=== PATIENT | male | born 1960 | race Caucasian/White ===

== ENCOUNTER → 2016-04-14 | Outpatient (CLI) | payer OTHER | END | disposition home or self-care (01) | LOC: RADMRIMAIN 14:48 | PROVIDERS: ATTEND Physical Medicine & Rehabilitation | DX: Z53.9 Procedure and treatment not carried out, unspecified reason (principal) ==

== ENCOUNTER 2016-05-12 09:03 | Emergency (ER) | payer OTHER ==
[2016-05-12 09:06] VITALS: RESP 20
--- NOTE | 2016-05-12 09:32 | XR ---
EXAMINATION TYPE: XR chest 2V DATE OF EXAM: 05/12/2016 9:26 AM COMPARISON: NONE TECHNIQUE: PA and lateral views submitted. HISTORY: cough FINDINGS: The lungs are clear and there is no pneumothorax, pleural effusion, or focal pneumonia. IMPRESSION: 1. No acute process.
[2016-05-12 10:20] LABS: Aty Lym Flag Slight; CHCM 34.2; HCT 50.1 % (39.0-53.0); HGB 16.5 gm/dL (13.0-17.5); MCHC 32.9 g/dL (31.0-37.0); MCV 94.1 fL (80.0-100.0); Mean Platelet Volume 7.5; RBC 5.32 m/uL (4.30-5.90); RDW 14.5 % (11.5-15.5); WBC 17.7 k/uL (3.8-10.6); WBC (Perox) 17.73
[2016-05-12 10:34] LABS: ALT 66 U/L (21-72); AST 28 U/L (17-59); Alkaline Phosphatase 90 U/L (38-126); Anion Gap 11 mmol/L; Blood Urea Nitrogen 30 mg/dL (9-20); Calcium 9.9 mg/dL (8.4-10.2); Carbon Dioxide 24 mmol/L (22-30); Chloride 106 mmol/L (98-107); Glucose 99 mg/dL (74-99); Non-African American GFR(MDRD) >60 (>60 ml/min/1.73 sqM); Potassium 4.7 mmol/L (3.5-5.1); Prothrombin Time 10.3 sec (9.0-12.0); Sodium 141 mmol/L (137-145); Total Bilirubin 0.5 mg/dL (0.2-1.3); Total Protein 6.8 g/dL (6.3-8.2)
[2016-05-12 10:48] LABS: Partial Thromboplastin Time 21.4 sec (22.0-30.0)
[2016-05-12 11:00] LABS: Add Differential Manual Differential
[2016-05-12 11:04] LABS: Metamyelocytes % 0.5 %; Myelocytes % 0.5 %; Nucleated Red Blood Cells 0 /100 WBC (0-0); Total Cells Counted 200
--- NOTE | 2016-05-12 11:54 | ED ---
General Adult HPI - General Chief complaint: Shortness of Breath Stated complaint: SOB Time Seen by Provider: 05/12/16 09:12 Source: patient, RN notes reviewed Mode of arrival: ambulatory Limitations: no limitations - History of Present Illness Initial comments: Patient 55-year-old male who presents emergency room today with a chief complaint of cough congestion over the last 6 weeks. He has been with following up with family doctor has been on several courses of antibiotics and steroids. Patient does admit that he had a repeat follow-up with family doctor today was advised coming here to emergency room for chest x-ray. Patient denies any recent fever, chills, shortness of breath, chest pain, back pain, abdominal pain, nausea or vomiting, numbness or tingling, dysuria or hematuria, constipation or diarrhea, headaches or visual changes, or any other complaints. - Related Data Home Medications Medication Instructions Recorded Confirmed Atenolol [Tenormin] 25 mg PO DAILY 05/12/16 05/12/16 Cholecalciferol [Vitamin D3] 1,000 unit PO DAILY 05/12/16 05/12/16 Ferrous Sulfate [Feosol] 325 mg PO DAILY 05/12/16 05/12/16 Multivitamins, Thera [Multivitamin 1 tab PO DAILY 05/12/16 05/12/16 (formulary)] Simvastatin [Zocor] 40 mg PO DAILY 05/12/16 05/12/16 Valsartan/Hydrochlorothiazide 1 tab PO DAILY 05/12/16 05/12/16 [Diovan Hct 160-12.5 mg Tab] Previous Rx's Medication Instructions Recorded guaiFENesin 400 mg PO Q4-6H #30 tablet 05/12/16 Allergies Allergy/AdvReac Type Severity Reaction Status Date / Time No Known Allergies Allergy Verified 05/12/16 09:34 Review of Systems ROS Statement: Those systems with pertinent positive or pertinent negative responses have been documented in the HPI. ROS Other: All systems not noted in ROS Statement are negative. Past Medical History Past Medical History: Hyperlipidemia, Hypertension History of Any Multi-Drug Resistant Organisms: None Reported Past Surgical History: Orthopedic Surgery Additional Past Surgical History / Comment(s): left femur Past Psychological History: No Psychological Hx Reported Smoking Status: Former smoker Past Alcohol Use History: None Reported Past Drug Use History: None Reported General Exam - General Exam Comments Initial Comments: General: The patient is awake and alert, in no distress, and does not appear acutely ill. Eye: Pupils are equal, round and reactive to light, extra-ocular movements are intact. No nystagmus. There is normal conjunctiva bilaterally. No signs of icterus. Ears, nose, mouth and throat: There are moist mucous membranes and no oral lesions. Neck: The neck is supple, there is no tenderness or JVD. Cardiovascular: There is a regular rate and rhythm. No murmur, rub or gallop is appreciated. Respiratory: Lungs are clear to auscultation, respirations are non-labored, breath sounds are equal. No wheezes, stridor, rales, or rhonchi. Musculoskeletal: Normal ROM, no tenderness. Strength 5/5. Sensation intact. Pulses equal bilaterally 2+. Neurological: A&O x 3. CN II-XII intact, There are no obvious motor or sensory deficits. Coordination appears grossly intact. Speech is normal. Skin: Skin is warm and dry and no rashes or lesions are noted. Psychiatric: Cooperative, appropriate mood & affect, normal judgment. Limitations: no limitations Course Vital Signs 05/12/16 09:04 Temperature 97.0 F L Pulse Rate 58 L Respiratory 20 Rate Blood Pressure 148/88 O2 Sat by Pulse 98 Oximetry Medical Decision Making - Medical Decision Making Patient reexamined at this time shows no signs of distress. X-ray negative for any evidence of pneumonia. Labs obtained shows a 17,000 white count. Patient has been on steroids. BNP negative. D-dimer negative. Cardiac enzymes negative. EKG shows normal sinus rhythm. Case discussed with attending physician Dr. Pitts. Patient will be discharged home advised to continue with breathing treatments given cough medication. Advised follow-up the family doctor over the next 1-2 days. Advised return for any other concerns. - Lab Data Result diagrams: 05/12/16 10:00 05/12/16 10:00 Lab Results 05/12/16 05/12/16 05/12/16 Range/Units 10:00 10:00 10:00 WBC 17.7 H (3.8-10.6) k/uL RBC 5.32 (4.30-5.90) m/uL Hgb 16.5 (13.0-17.5) gm/dL Hct 50.1 (39.0-53.0) % MCV 94.1 (80.0-100.0) fL MCH 31.0 (25.0-35.0) pg MCHC 32.9 (31.0-37.0) g/dL RDW 14.5 (11.5-15.5) % Plt Count 236 (150-450) k/uL Neutrophils % (Manual) 84.0 % Lymphocytes % (Manual) 12.0 % Monocytes % (Manual) 2.5 % Eosinophils % (Manual) 0.5 % Metamyelocytes % 0.5 % Myelocytes % 0.5 % Neutrophils # (Manual) 14.9 H (1.3-7.7) k/uL Lymphocytes # (Manual) 2.1 (1.0-4.8) k/uL Monocytes # (Manual) 0.4 (0-1.0) k/uL Eosinophils # (Manual) 0.1 (0-0.7) k/uL Nucleated RBCs 0 (0-0) /100 WBC Poikilocytosis (manual Present Anisocytosis (manual) Present PT 10.3 (9.0-12.0) sec INR 1.0 (<1.1) APTT 21.4 L (22.0-30.0) sec D-Dimer 0.42 (<0.60) mg/L FEU Sodium 141 (137-145) mmol/L Potassium 4.7 (3.5-5.1) mmol/L Chloride 106 (98-107) mmol/L Carbon Dioxide 24 (22-30) mmol/L Anion Gap 11 mmol/L BUN 30 H (9-20) mg/dL Creatinine 0.85 (0.66-1.25) mg/dL Est GFR (MDRD) Af Amer >60 (>60 ml/min/1.73 sqM) Est GFR (MDRD) Non-Af >60 (>60 ml/min/1.73 sqM) Glucose 99 (74-99) mg/dL Calcium 9.9 (8.4-10.2) mg/dL Total Bilirubin 0.5 (0.2-1.3) mg/dL AST 28 (17-59) U/L ALT 66 (21-72) U/L Alkaline Phosphatase 90 (38-126) U/L Troponin I (0.000-0.034) ng/mL NT-Pro-B Natriuret Pep pg/mL Total Protein 6.8 (6.3-8.2) g/dL Albumin 4.0 (3.5-5.0) g/dL 05/12/16 05/12/16 Range/Units 10:00 10:00 WBC (3.8-10.6) k/uL RBC (4.30-5.90) m/uL Hgb (13.0-17.5) gm/dL Hct (39.0-53.0) % MCV (80.0-100.0) fL MCH (25.0-35.0) pg MCHC (31.0-37.0) g/dL RDW (11.5-15.5) % Plt Count (150-450) k/uL Neutrophils % (Manual) % Lymphocytes % (Manual) % Monocytes % (Manual) % Eosinophils % (Manual) % Metamyelocytes % % Myelocytes % % Neutrophils # (Manual) (1.3-7.7) k/uL Lymphocytes # (Manual) (1.0-4.8) k/uL Monocytes # (Manual) (0-1.0) k/uL Eosinophils # (Manual) (0-0.7) k/uL Nucleated RBCs (0-0) /100 WBC Poikilocytosis (manual Anisocytosis (manual) PT (9.0-12.0) sec INR (<1.1) APTT (22.0-30.0) sec D-Dimer (<0.60) mg/L FEU Sodium (137-145) mmol/L Potassium (3.5-5.1) mmol/L Chloride (98-107) mmol/L Carbon Dioxide (22-30) mmol/L Anion Gap mmol/L BUN (9-20) mg/dL Creatinine (0.66-1.25) mg/dL Est GFR (MDRD) Af Amer (>60 ml/min/1.73 sqM) Est GFR (MDRD) Non-Af (>60 ml/min/1.73 sqM) Glucose (74-99) mg/dL Calcium (8.4-10.2) mg/dL Total Bilirubin (0.2-1.3) mg/dL AST (17-59) U/L ALT (21-72) U/L Alkaline Phosphatase (38-126) U/L Troponin I 0.024 (0.000-0.034) ng/mL NT-Pro-B Natriuret Pep 474 pg/mL Total Protein (6.3-8.2) g/dL Albumin (3.5-5.0) g/dL Disposition Clinical Impression: Acute bronchitis Disposition: HOME SELF-CARE Condition: Good Instructions: Acute Bronchitis (ED) Additional Instructions: Please use medication as discussed. Please follow-up with family doctor in the next 2 days of symptoms have not improved. Please return to emergency room if the symptoms increase or worsen or for any other concerns. Prescriptions: guaiFENesin 400 mg PO Q4-6H #30 tablet Time of Disposition: 11:54
[2016-05-12 12:02] VITALS: BP 148/77; PULSE 51; TEMP 96.9
== END 2016-05-12 12:05 | disposition home or self-care (01) ==
LOC: EC 09:03
DX: J20.9 Acute bronchitis, unspecified (principal); I10 Essential (primary) hypertension; E78.5 Hyperlipidemia, unspecified; Z87.891 Personal history of nicotine dependence; Z79.899 Other long term (current) drug therapy
CPT/HCPCS: 36415; 71020; 80053; 83880; 84484; 85025; 85379; 85610; 85730; 93005; 99285

== ENCOUNTER 2018-02-18 21:19 | Observation (INO) | payer OTHER ==
[2018-02-18] MEDS ORDERED: NITROGLYCERIN SL TABS 0.4 MG TAB SUBLINGUAL STA (22:05)
[2018-02-18] MEDS ORDERED: ASPIRIN 81 MG PO STA (22:06)
--- NOTE | 2018-02-18 22:32 | XR ---
EXAMINATION TYPE: XR chest 2V DATE OF EXAM: 02/18/2018 COMPARISON: 05/12/2016 HISTORY: Chest pain TECHNIQUE: Frontal and lateral views of the chest are obtained. FINDINGS: There is no heart failure nor confluent pneumonic infiltrate. Costophrenic angles are marianela r. There is minimal linear density at the left lung base. Bony thorax is intact. There is no pleural effusion. There are chest leads. IMPRESSION: Scarring or subsegmental atelectasis at the left lung base. No significant change overal l compared to old exam. Normal heart.
[2018-02-18 22:34] LABS: ALT 63 U/L (21-72); AST 46 U/L (17-59); Albumin 4.4 g/dL (3.5-5.0); Alkaline Phosphatase 96 U/L (38-126); Anion Gap 10 mmol/L; Blood Urea Nitrogen 16 mg/dL (9-20); Carbon Dioxide 24 mmol/L (22-30); Chloride 104 mmol/L (98-107); Glucose 93 mg/dL (74-99); INR 1.1 (<1.2); Magnesium 1.9 mg/dL (1.6-2.3); Partial Thromboplastin Time 25.4 sec (22.0-30.0); Potassium 3.8 mmol/L (3.5-5.1); Prothrombin Time 11.3 sec (9.0-12.0); Sodium 138 mmol/L (137-145); Total Protein 6.9 g/dL (6.3-8.2)
[2018-02-18 22:36] LABS: HGB 15.2 gm/dL (13.0-17.5); MCH 31.3 pg (25.0-35.0); MCHC 34.6 g/dL (31.0-37.0); MCV 90.5 fL (80.0-100.0); Mean Platelet Volume 7.4; Platelet Count 191 k/uL (150-450); RBC 4.86 m/uL (4.30-5.90); RDW 13.6 % (11.5-15.5)
--- NOTE | 2018-02-18 22:50 | ED ---
Chest Pain HPI - General Chief Complaint: Chest Pain Stated Complaint: Chest pain Time Seen by Provider: 02/18/18 21:47 Source: patient, family, RN notes reviewed Mode of arrival: ambulatory Limitations: no limitations - History of Present Illness Initial Comments: This is a 57-year-old male with a history of heart disease in his stents in the past who states he for last week he's had intermittent episodes of anterior chest pain crampy tight in nature as severe as 3-4/10 in severity he is in today because he has recurrent pain right now is currently 3/10 no nausea vomiting sweats or other symptoms he thought he may have strained himself as he went to her about week ago and dragged to deer otherwise by himself. He has no other complaints of shortness breath cough or phlegm production. He does state the pain feels identical to when he had his previous stent. MD Complaint: chest pain - Related Data Home Medications Medication Instructions Recorded Confirmed Cholecalciferol [Vitamin D3] 5,000 unit PO DAILY 05/12/16 02/18/18 Ferrous Sulfate [Feosol] 325 mg PO DAILY 05/12/16 02/18/18 Multivitamins, Thera [Multivitamin 1 tab PO DAILY 05/12/16 02/18/18 (formulary)] Valsartan/Hydrochlorothiazide 1 tab PO DAILY 05/12/16 02/18/18 [Diovan Hct 160-12.5 mg Tab] Allopurinol [Zyloprim] 300 mg PO DAILY 02/18/18 02/18/18 Aspirin EC [Ecotrin Low Dose] 81 mg PO DAILY 02/18/18 02/18/18 Atenolol [Tenormin] 50 mg PO DAILY 02/18/18 02/18/18 Atorvastatin [Lipitor] 80 mg PO DAILY 02/18/18 02/18/18 Clopidogrel Bisulfate [Plavix] 75 mg PO DAILY 02/18/18 02/18/18 Tart Robertson Extract 1 tab PO DAILY 02/18/18 02/18/18 Allergies Allergy/AdvReac Type Severity Reaction Status Date / Time mold Allergy Dyspnea Verified 02/18/18 21:33 Review of Systems ROS Statement: Those systems with pertinent positive or pertinent negative responses have been documented in the HPI. ROS Other: All systems not noted in ROS Statement are negative. EKG Findings - EKG Results: EKG: interpreted by LESLYE, sinus rhythm (Normal sinus rhythm of 76. Interval 198 QRS duration 88 daily since QTC 36/434 this is normal. EKG some artifact was present.) Past Medical History Past Medical History: Hyperlipidemia, Hypertension History of Any Multi-Drug Resistant Organisms: None Reported Past Surgical History: Orthopedic Surgery Additional Past Surgical History / Comment(s): left femur Past Psychological History: No Psychological Hx Reported Smoking Status: Former smoker Past Alcohol Use History: None Reported Past Drug Use History: None Reported General Exam - General Exam Comments Initial Comments: This is a well-developed well-nourished awake alert oriented 3 male Limitations: no limitations General appearance: alert, anxious Head exam: Present: atraumatic, normocephalic, normal inspection Eye exam: Present: normal appearance, PERRL, EOMI. Absent: scleral icterus, conjunctival injection, periorbital swelling ENT exam: Present: normal exam, mucous membranes moist Neck exam: Present: normal inspection. Absent: tenderness, meningismus, lymphadenopathy Respiratory exam: Present: normal lung sounds bilaterally. Absent: respiratory distress, wheezes, rales, rhonchi, stridor Cardiovascular Exam: Present: regular rate, normal rhythm, normal heart sounds. Absent: systolic murmur, diastolic murmur, rubs, gallop, clicks GI/Abdominal exam: Present: soft, normal bowel sounds. Absent: distended, tenderness, guarding, rebound, rigid Extremities exam: Present: normal inspection, full ROM, normal capillary refill. Absent: tenderness, pedal edema, joint swelling, calf tenderness Back exam: Present: normal inspection Neurological exam: Present: alert, oriented X3, CN II-XII intact Psychiatric exam: Present: normal affect, normal mood Skin exam: Present: warm, dry, intact, normal color. Absent: rash Course Vital Signs 02/18/18 02/18/18 21:21 21:58 Temperature 98.3 F Pulse Rate 81 Respiratory 16 20 Rate Blood Pressure 183/89 O2 Sat by Pulse 97 Oximetry - Reevaluation(s) Reevaluation #1: 02/19/18 00:04 Reevaluation after sublingual nitroglycerin patient's pain is resolved after 1 sublingual nitro. He has no other symptoms at this time. Chest Pain MDM - MDM Review the imaging shows no acute findings. I did discuss findings with patient has . Patient does have chest pain is very similar to his previous cardiac event. He will be admitted for evaluation. I did discuss the case with Dr. Gorman who is covering for Dr. Rosen. Critical Care Time Critical Care Time: Yes Critical Care Time: 31 total minutes of critical-care which includes initial presentation with history physical labs x-rays review of the same. Reevaluation the patient after medication given. Discussion with the admitting physician admission orders and documentation of the above. Disposition Clinical Impression: Chest pain, Unstable angina pectoris Disposition: ADMITTED IP TO THIS HOSP Condition: Stable Referrals: Danielle Velasco MD [Primary Care Provider] - 1-2 days
[2018-02-18 22:55] LABS: Neutrophils % (M) 60 %; Nucleated Red Blood Cells 0 /100 WBC (0-0); Total Cells Counted 100; Toxic Vacuolation Present
[2018-02-18 23:00] LABS: Creatine Kinase MB 2.4 ng/mL (0.0-2.4); Troponin I 0.014 ng/mL (0.000-0.034)
[2018-02-19] MEDS ORDERED: NITROGLYCERIN SL TABS 0.4 MG TAB SUBLINGUAL PRN (00:07)
[2018-02-19] MEDS ORDERED: HEPARIN SODIUM,PORCINE 5,000 UNIT/ML 1 ML VIAL IV ONE (00:07)
[2018-02-19] MEDS ORDERED: HEPARIN SOD,PORK IN 0.45% NACL 25,000 UNIT in 0.45% NACL 1 250ML.BAG IV SCH (00:15)
[2018-02-19 00:47] VITALS: BMI 40.1
[2018-02-19] MEDS: SODIUM CHLORIDE 0.9% 1,000 ML IV SCH ×2 (01:49→23:31)
[2018-02-19 04:28] LABS: Troponin I 0.015 ng/mL (0.000-0.034)
[2018-02-19] MEDS: NITROGLYCERIN OINT 1 INCH/GM PACKET TOPICAL SCH ×4 (05:59→23:30)
[2018-02-19 09:43] LABS: Creatine Kinase 288 U/L (55-170)
[2018-02-19 09:55] LABS: Creatine Kinase MB 1.6 ng/mL (0.0-2.4); Troponin I <0.012 ng/mL (0.000-0.034)
[2018-02-19] MEDS ORDERED: CAFFEINE CITRATE 60 MG/3 ML VIAL IV PRN (10:32)
[2018-02-19] MEDS ORDERED: REGADENOSON 0.4 MG/5 ML SYRINGE IV ONE (10:32)
--- NOTE | 2018-02-19 11:11 | ECHOF ---
Referral Reason:cp MEASUREMENTS -------- HEIGHT: 2.5 cm WEIGHT: 127.0 kg BP: IVSd: 1.1 cm (0.6 - 1.1) LVIDd: 4.7 cm (3.9 - 5.3) LVPWd: 1.2 cm (0.6 - 1.1) IVSs: 1.6 cm LVIDs: 2.1 cm LVPWs: 1.9 cm Ao Diam: 3.4 cm (2.0 - 3.7) AV Cusp: 2.1 cm (1.5 - 2.6) LA Diam: 3.8 cm (2.7 - 3.8) MV EXCURSION: 21.866 mm (> 18.000) MV EF SLOPE: 51 mm/s (70 - 150) EPSS: 0.5 cm MV E Michael: 0.63 m/s MV DecT: 210 ms MV A Michael: 0.80 m/s MV E/A Ratio: 0.79 RAP: 5.00 mmHg RVSP: 16.89 mmHg FINDINGS -------- Sinus rhythm. This was a technically difficult study with suboptimal views. The left ventricular size is normal. There is borderline concentric left ventricular hypertrophy. Overall left ventricular systolic function is normal with, an EF between 55 - 60 %. The right ventricle is normal in size and function. The left atrium is normal in size. The right atrium is normal in size. xx ml of Lumason was utilized for enhancement of images. The aortic valve is trileaflet and appears structurally normal. There is trace mitral regurgitation. Mild tricuspid regurgitation present. The right ventricular systolic pressure, as measured by Doppl er, is 16.89mmHg. Pulmonic valve appears structurally normal. The aortic root size is normal. The pericardium is normal. CONCLUSIONS -------- 1. Sinus rhythm. 2. This was a technically difficult study with suboptimal views. 3. The left ventricular size is normal. 4. There is borderline concentric left ventricular hypertrophy. 5. Overall left ventricular systolic function is normal with, an EF between 55 - 60 %. 6. The right ventricle is normal in size and function. 7. The left atrium is normal in size. 8. The right atrium is normal in size. 9. xx ml of Lumason was utilized for enhancement of images. 10. The aortic valve is trileaflet and appears structurally normal. 11. There is trace mitral regurgitation. 12. Mild tricuspid regurgitation present. 13. The right ventricular systolic pressure, as measured by Doppler, is 16.89mmHg. 14. Pulmonic valve appears structurally normal. 15. The aortic root size is normal. 16. The pericardium is normal. BPM ANALYST: Mayelin Slater RDCS
--- NOTE | 2018-02-19 11:32 | P.CRDCN ---
History of Present Illness History of present illness: This is a pleasant 57-year-old male past medical history significant for coronary artery disease s/p stenting distal RCA 01/[address] elevated myocardial infarction, hypertension, dyslipidemia, gout and obesity. He follows with Dr. Mansfield in the office. We have been asked to see him in consultation for chest pain. He states for the previous 1-week he has been experiencing pain in the left precordial region described as a pressure burning sensation. The symptoms are worse with exertion and improve with rest. While having the discomfort he feels mildly short of breath and nauseated. His symptoms feel somewhat similar to his previous PA. He denies dizziness, vomiting , palpitations or diaphoresis. He denies radiation to the arm, back, neck or jaw. He is currently maintained on dual anti-platelet therapy and states he is compliant with his medications as prescribed. EKG reveals sinus mechanism with no acute ST or T wave abnormalities noted. Chest x-ray negative for acute cardiopulmonary process. Laboratory data reviewed, sodium 138, potassium 3.8, magnesium 1.9, creatinine 0.8, cardiac enzymes negative 3, NTproBNP 41. Current cardiac medications include aspirin 81 mg daily, atenolol 50 mg daily, atorvastatin 80 mg daily, Plavix 75 mg daily and valsartan/HCTZ 160/12.5 mg daily. Most recent catheterization performed 01/2017 at [facility] revealed critical stenosis of distal RCA which was stented. At the time of my exam: CONSTITUTIONAL: Denies fever. Denies chills. EYES: Denies blurred vision. Denies vision changes. Denies eye pain. EARS, NOSE, MOUTH & THROAT: Denies headache. Denies sore throat. Denies ear pain. CARDIOVASCULAR: Denies chest pain. Denies shortness of breath. Denies orthopnea. Denies PND. Denies palpitations. RESPIRATORY: Denies cough. GASTROINTESTINAL: Denies abdominal pain. Denies diarrhea. Denies constipation. Denies nausea. Denies vomiting. MUSCULOSKELETAL: Denies myalgias. INTEGUMENTARY: Denies pruitis. Denies rash. NEUROLOGIC: Denies numbness. Denies tingling. Denies weakness. PSYCHIATRIC: Denies anxiety. Denies depression. ENDOCRINE: Denies fatigue. Denies weight change. Denies polydipsia. Denies polyurina. GENITOURINARY: Denies burning, hematuria or urgency with micturation. HEMATOLOGIC: Denies history of anemia. Denies bleeding. Blood pressure 120/72 heart rate 59 afebrile maintaining oxygen saturation on room air GENERAL: This is a 57-year-old male in no apparent distress at the time of my examination. Obese. HEENT: Head is atraumatic, normocephalic. Pupils are equal, round. Sclerae anicteric. Conjunctivae are clear. Mucous membranes of the mouth are moist. Neck is supple. There is no jugular venous distention. No carotid bruit is heard. LUNGS: Clear to auscultation no wheezes, rales or rhonchi. No chest wall tenderness is noted on palpation or with deep breathing. HEART: Regular rate and rhythm without murmurs, rubs or gallops. S1 and S2 heard. ABDOMEN: Soft, nontender. Bowel sounds are heard. No organomegaly noted. EXTREMITIES: No evidence of peripheral edema and no calf tenderness noted. VASCULAR: Radial and dorsalis pedis pulses palpated, no evidence of clubbing. NEUROLOGIC: Patient is awake, alert and oriented x3. ASSESSMENT Precordial chest pain. An acute coronary event has been ruled out. History of coronary artery disease in presence of acute ST elevated inferior wall PA s/p angioplasty to distal RCA. Hypertension Dyslipidemia Gout Obesity, BMI 40 PLAN An acute coronary event has been rule out with no EKG evidence of ischemia and negative cardiac enzymes. Continue dual anti-platelet therapy. Obtain 2D echocardiogram and doppler study to assess cardiac structure and function. Perform Lexiscan stress test to assess for reversible ischemia. If stress test is normal he is stable from a cardiac perspective, if abnormal we will consider coronary angiography. Follow up with Dr. Mansfield in 2-3 weeks. Thank you kindly for this consultation. Nurse Practitioner note has been reviewed, I agree with a documented findings and plan of care. Patient was seen and examined. Past Medical History Past Medical History: Hyperlipidemia, Hypertension History of Any Multi-Drug Resistant Organisms: None Reported Past Surgical History: Orthopedic Surgery Additional Past Surgical History / Comment(s): left femur Past Anesthesia/Blood Transfusion Reactions: No Reported Reaction Smoking Status: Never smoker - Past Family History Mother Family Medical History: No Reported History Father Family Medical History: Congestive Heart Failure (CHF), Dementia, Diabetes Mellitus, Myocardial Infarction (PA), Renal Disease Additional Family Medical History / Comment(s): Father had lots of issues but pt not sure of what they all were. Parkinsons. Medications and Allergies Home Medications Medication Instructions Recorded Confirmed Type Cholecalciferol [Vitamin D3] 5,000 unit PO DAILY 05/12/16 02/19/18 History Ferrous Sulfate [Feosol] 325 mg PO DAILY 05/12/16 02/19/18 History Multivitamins, Thera [Multivitamin 1 tab PO DAILY 05/12/16 02/19/18 History (formulary)] Valsartan/Hydrochlorothiazide 1 tab PO DAILY 05/12/16 02/19/18 History [Diovan Hct 160-12.5 mg Tab] Allopurinol [Zyloprim] 300 mg PO DAILY 02/18/18 02/19/18 History Aspirin EC [Ecotrin Low Dose] 81 mg PO DAILY 02/18/18 02/19/18 History Atenolol [Tenormin] 50 mg PO DAILY 02/18/18 02/19/18 History Atorvastatin [Lipitor] 80 mg PO DAILY 02/18/18 02/19/18 History Clopidogrel Bisulfate [Plavix] 75 mg PO DAILY 02/18/18 02/19/18 History Tart Robertson Extract 1 tab PO DAILY 02/18/18 02/19/18 History Allergies Allergy/AdvReac Type Severity Reaction Status Date / Time house dust mite Allergy Dyspnea Verified 02/19/18 00:34 mold Allergy Dyspnea Verified 02/18/18 21:33 Physical Exam Vitals: Vital Signs Temp Pulse Pulse Pulse Resp BP BP 02/19/18 08:00 98.1 F 59 L 18 120/72 02/19/18 04:00 57 L 18 02/19/18 03:57 98.2 F 57 L 18 118/62 02/19/18 01:14 75 16 02/19/18 00:39 97.5 F L 75 16 167/80 02/19/18 00:00 65 16 126/76 02/18/18 23:00 74 12 110/73 02/18/18 22:00 75 15 161/101 02/18/18 21:58 20 02/18/18 21:38 77 18 02/18/18 21:21 98.3 F 81 16 183/89 Pulse Ox 02/19/18 08:00 96 02/19/18 04:00 12/28/18 03:57 95 02/19/18 01:14 02/19/18 00:39 96 02/19/18 00:00 98 02/18/18 23:00 98 02/18/18 22:00 97 02/18/18 21:58 02/18/18 21:38 97 02/18/18 21:21 97 Intake and Output 02/18/18 02/19/18 02/19/18 22:59 06:59 14:59 Intake Total 160 Balance 160 Intake: Intake, IV Titration 160 Amount Sodium Chloride 0.9% 1, 160 000 ml @ 20 mls/hr IV . Q24H [facility] Rx#:[id number] Other: Weight 127.006 kg 127 kg Results 02/18/18 21:54 02/18/18 21:54 Cardiac Enzymes 02/18/18 02/18/18 02/19/18 Range/Units 21:54 21:54 03:39 AST 46 (17-59) U/L CK-MB (CK-2) 2.4 2.0 (0.0-2.4) ng/mL Troponin I 0.014 0.015 (0.000-0.034) ng/mL Coagulation 02/18/18 Range/Units 21:54 PT 11.3 (9.0-12.0) sec APTT 25.4 (22.0-30.0) sec CBC 02/18/18 Range/Units 21:54 WBC 10.0 (3.8-10.6) k/uL RBC 4.86 (4.30-5.90) m/uL Hgb 15.2 (13.0-17.5) gm/dL Hct 44.0 (39.0-53.0) % Plt Count 191 (150-450) k/uL Comprehensive Metabolic Panel 02/18/18 Range/Units 21:54 Sodium 138 (137-145) mmol/L Potassium 3.8 (3.5-5.1) mmol/L Chloride 104 (98-107) mmol/L Carbon Dioxide 24 (22-30) mmol/L BUN 16 (9-20) mg/dL Creatinine 0.80 (0.66-1.25) mg/dL Glucose 93 (74-99) mg/dL Calcium 10.0 (8.4-10.2) mg/dL AST 46 (17-59) U/L ALT 63 (21-72) U/L Alkaline Phosphatase 96 (38-126) U/L Total Protein 6.9 (6.3-8.2) g/dL Albumin 4.4 (3.5-5.0) g/dL Current Medications Generic Name Dose Route Start Last Admin Trade Name Freq PRN Reason Stop Dose Admin Allopurinol 300 mg 02/19/18 09:00 Zyloprim PO DAILY [facility] Aspirin 325 mg 02/20/18 09:00 Aspirin PO DAILY [facility] Atenolol 50 mg 02/19/18 09:00 Tenormin PO DAILY [facility] Atorvastatin Calcium 80 mg 02/19/18 09:00 Lipitor PO DAILY [facility] Cholecalciferol 5,000 unit 02/19/18 09:00 Vitamin D3 PO DAILY [facility] Clopidogrel Bisulfate 75 mg 02/19/18 09:00 Plavix PO DAILY [facility] Ferrous Sulfate 325 mg 02/19/18 09:00 Feosol PO DAILY [facility] Hydrochlorothiazide 12.5 mg 02/19/18 09:00 Hydrodiuril PO DAILY [facility] Heparin Sodium/Sodium Chloride 250 mls @ 10 mls/hr 02/19/18 00:15 02/19/18 01 :48 25,000 unit/ Sodium Chloride IV 10 ml/hr .Q24H [facility] 10 mls/hr Administration Protocol Sodium Chloride 1,000 mls @ 20 mls/hr 02/19/18 00:15 02/19/18 01:49 Saline 0.9% IV 20 mls/hr .Q24H [facility] Administration Multivitamins 1 each 02/19/18 12:00 Theragran PO DAILY@1200 [facility] Nitroglycerin 1 inch 02/19/18 06:00 02/19/18 05:59 Nitro-Bid Oint TOPICAL Not Given Q6HR [facility] Nitroglycerin 0.4 mg 02/19/18 00:07 Nitrostat SUBLINGUAL Q5M PRN Chest Pain Valsartan 160 mg 02/19/18 09:00 Diovan PO DAILY [facility] Intake and Output 02/18/18 02/19/18 02/19/18 22:59 06:59 14:59 Intake Total 160 Balance 160 Intake: Intake, IV Titration 160 Amount Sodium Chloride 0.9% 1, 160 000 ml @ 20 mls/hr IV . Q24H [facility] Rx#:[id number] Other: Weight 127.006 kg 127 kg 02/18/18 21:54 02/18/18 21:54
[2018-02-19 12:00] LABS: Cholesterol 130 mg/dL (<200); HDL Cholesterol 38 mg/dL (40-60); LDL Cholesterol,Calculated 69 mg/dL (0-99); Triglycerides 117 mg/dL (<150)
--- NOTE | 2018-02-19 12:46 | P.STRESS ---
- Stress Test Note Stress Test Results/Findings: Exam Performed: NM stress lexiscan cardiolite Exam Date: 02/19/18 Reason for Exam: Chest Pain Height: 5 ft 10 in Weight: 127 kg Protocol: Ronit Scan Stage: na Duration of Exercise: na Resting Heart Rate: 62 Resting Blood Pressure: 124/75 Maximum Achieved Heart Rate: 62 Maximum Achieved Blood Pressure: 143/82 85% PMHR: na 100% PMHR: na METS: na Technologist Comment: Stress Test Results/Findings: This is a 57-year-old gentleman was admitted to the hospital with chest pain. Patient has history of previous myocardial infarction and stent placement and also hypertension. Stress data:. Blood pressure at rest is 03/18/1976, pulse rate of 62. Baseline EKG showed sinus rhythm without any acute changes. EKGs taken during or after the Lexiscan infusion did not reveal any significant changes from the baseline. Final impression: #1. Negative Lexiscan stress test #2. Report on the nuclear images to be given by the radiologist
[2018-02-19] MEDS: ALLOPURINOL 300 MG TAB PO SCH (13:34)
[2018-02-19] MEDS: HYDROCHLOROTHIAZIDE 12.5 MG CAP PO SCH (13:34)
[2018-02-19] MEDS: CHOLECALCIFEROL 1,000 UNIT TAB PO SCH (13:34)
[2018-02-19] MEDS: VALSARTAN 160 MG TAB PO SCH (13:34)
[2018-02-19] MEDS: MULTIVITAMINS, THERA 1 EACH TAB PO SCH (13:34)
[2018-02-19] MEDS: FERROUS SULFATE 325 MG TAB PO SCH (13:34)
[2018-02-19] MEDS: ATORVASTATIN 80 MG TAB PO SCH (13:34)
[2018-02-19] MEDS: ATENOLOL 50 MG TAB PO SCH (13:34)
[2018-02-19] MEDS: CLOPIDOGREL 75 MG TAB PO SCH (13:34)
--- NOTE | 2018-02-19 13:38 | NM ---
EXAMINATION TYPE: NM stress lexiscan cardiolite DATE OF EXAM: 02/19/2018 COMPARISON: NONE HISTORY: Chest pain TECHNIQUE: After the intravenous administration of 10.5 mCi Tc 99m Sestamibi - Cardiolite resting SP ECT images acquired 45 minutes post injection. The patient received 0.4mg Lexiscan, 26 mCi Tc 99m Sestamibi - Stress images obtained 30 minutes post injection FINDINGS: Review of stress and rest SPECT images demonstrates decreased uptake along the inferior wall on stres s and rest images, somewhat more on stress than rest images at portions of the inferior wall of the l eft. Gated analysis shows normal wall motion with an estimated left ventricular ejection fraction of 53%. IMPRESSION: Findings compatible with pharmacologically induced left ventricular myocardial ischemia, there may be prior infarct along the inferior wall left ventricle with gwen-infarct pharmacologically induced isc hemia
[2018-02-19] MEDS ORDERED: ALPRAZolam 0.25 MG TAB PO PRN (13:56)
[2018-02-19] MEDS ORDERED: ALPRAZolam 0.5 MG TAB PO PRN (13:56)
[2018-02-19] MEDS ORDERED: SODIUM CHLORIDE 0.9% 1,000 ML in EMPTY BAG 1 BAG IV ONE (13:56)
--- NOTE | 2018-02-19 14:53 | P.PN ---
Progress Note - Text Lexiscan stress test reveals evidence of reversible cardiac ischemia along the inferior wall of the left ventricle. These findings have been discussed in detail with his primary sanding machine operator or tender Dr. Mansfield. The patient will undergo cardiac catheterization tomorrow at 11:00 am. I have discussed the risks, benefits and alternative therapies for the above-mentioned procedure and for both sedation/analgesia as well as necessary blood product administration, if indicated, as they pertain to this patient. The patient has indicated understanding and acceptance of the risks and procedures discussed. Questions have been answered appropriately and he is agreeable to move forward with the above-stated procedure.
--- NOTE | 2018-02-19 15:41 | P.HPIM ---
History of Present Illness H&P Date: 02/19/18 Chief Complaint: Chest discomfort and pain off and on for a week 57-year-old morbidly obese male with history of hypertension hypertensive cardiovascular disease and coronary artery disease history of stent placement about a year ago for last 1 week patient is been having intermittent episode ache chest pain with a pressure-like sensation patient came into emergency department was seen evaluated examined, CPK were elevated, patient underwent a stress test this morning which came back positive, troponins were marginal patient is now being considered for cardiac cath and angiogram already have been evaluated by cardiovascular services care plan discussed with the patient as well as at length Review of Systems All systems: negative Past Medical History Past Medical History: Hyperlipidemia, Hypertension History of Any Multi-Drug Resistant Organisms: None Reported Past Surgical History: Orthopedic Surgery Additional Past Surgical History / Comment(s): left femur Past Anesthesia/Blood Transfusion Reactions: No Reported Reaction Smoking Status: Never smoker - Past Family History Mother Family Medical History: No Reported History Father Family Medical History: Congestive Heart Failure (CHF), Dementia, Diabetes Mellitus, Myocardial Infarction ([place]), Renal Disease Additional Family Medical History / Comment(s): Father had lots of issues but pt not sure of what they all were. Parkinsons. Medications and Allergies Home Medications Medication Instructions Recorded Confirmed Type Cholecalciferol [Vitamin D3] 5,000 unit PO DAILY 05/12/16 02/19/18 History Ferrous Sulfate [Feosol] 325 mg PO DAILY 05/12/16 02/19/18 History Multivitamins, Thera [Multivitamin 1 tab PO DAILY 05/12/16 02/19/18 History (formulary)] Valsartan/Hydrochlorothiazide 1 tab PO DAILY 05/12/16 02/19/18 History [Diovan Hct 160-12.5 mg Tab] Allopurinol [Zyloprim] 300 mg PO DAILY 02/18/18 02/19/18 History Aspirin EC [Ecotrin Low Dose] 81 mg PO DAILY 02/18/18 02/19/18 History Atenolol [Tenormin] 50 mg PO DAILY 02/18/18 02/19/18 History Atorvastatin [Lipitor] 80 mg PO DAILY 02/18/18 02/19/18 History Clopidogrel Bisulfate [Plavix] 75 mg PO DAILY 02/18/18 02/19/18 History Tart Robertson Extract 1 tab PO DAILY 02/18/18 02/19/18 History Allergies Allergy/AdvReac Type Severity Reaction Status Date / Time house dust mite Allergy Dyspnea Verified 02/19/18 00:34 mold Allergy Dyspnea Verified 02/18/18 21:33 Physical Exam Vitals: Vital Signs Temp Pulse Pulse Pulse Resp BP BP 02/19/18 12:00 57 L 61 18 02/19/18 11:41 97.5 F L 61 18 130/85 02/19/18 08:00 98.1 F 57 L 59 L 18 120/72 02/19/18 04:00 57 L 18 02/19/18 03:57 98.2 F 57 L 18 118/62 02/19/18 01:14 75 16 02/19/18 00:39 97.5 F L 75 16 167/80 02/19/18 00:00 65 16 126/76 02/18/18 23:00 74 12 110/73 02/18/18 22:00 75 15 161/101 02/18/18 21:58 20 02/18/18 21:38 77 18 02/18/18 21:21 98.3 F 81 16 183/89 Pulse Ox 02/19/18 12:00 02/19/18 11:41 95 02/19/18 08:00 96 02/19/18 04:00 02/19/18 03:57 95 02/19/18 01:14 02/19/18 00:39 96 02/19/18 00:00 98 02/18/18 23:00 98 02/18/18 22:00 97 02/18/18 21:58 02/18/18 21:38 97 02/18/18 21:21 97 Intake and Output 02/19/18 02/19/18 02/19/18 06:59 14:59 22:59 Intake Total 160 240 Balance 160 240 Intake: Intake, IV Titration 160 Amount Sodium Chloride 0.9% 1, 160 000 ml @ 20 mls/hr IV . Q24H [facility] Rx#:[id number] Oral 240 Other: Voiding Method Toilet # Voids 3 Weight 127 kg - Constitutional General appearance: cooperative, morbidly obese, no acute distress - EENT Eyes: EOMI, normal appearance ENT: normal oropharynx Ears: bilateral: normal - Neck Neck: normal ROM Carotids: bilateral: upstroke normal, bruit absent Thyroid: bilateral: normal size - Respiratory Respiratory: bilateral: CTA - Cardiovascular Rhythm: regular Heart sounds: normal: S1, S2 - Gastrointestinal General gastrointestinal: distended, normal bowel sounds, soft - Integumentary Integumentary: normal turgor - Neurologic Neurologic: CNII-XII intact - Musculoskeletal Musculoskeletal: gait normal, strength equal bilaterally - Psychiatric Psychiatric: A&O x's 3, appropriate affect, intact judgment & insight Results CBC & Chem 7: 02/18/18 21:54 02/18/18 21:54 Labs: Abnormal Lab Results - Last 24 Hours (Table) 02/18/18 02/18/18 02/19/18 Range/Units 21:54 21:54 03:39 Monocytes # (Manual) 1.20 H (0-1.0) k/uL Total Creatine Kinase 383 H 371 H (55-170) U/L HDL Cholesterol (40-60) mg/dL 02/19/18 02/19/18 Range/Units 09:00 09:00 Monocytes # (Manual) (0-1.0) k/uL Total Creatine Kinase 288 H (55-170) U/L HDL Cholesterol 38 L (40-60) mg/dL Chest x-ray: report reviewed (Subsegmental atelectasis is on the left lower lobe , EKG normal sinus rhythm, Lasix, stress test positive for reversible ischemia on the inferior wall of LV), image reviewed Thrombosis Risk Factor Assmnt - Choose All That Apply Each Factor Represents 1 point: Age 41-60 years, Obesity (BMI >25) Thrombosis Risk Factor Assessment Total Risk Factor Score: 2 Thrombosis Risk Factor Assessment Level: Low Risk Assessment and Plan Assessment: Coronary artery disease Unstable angina Hypertension hypertensive cardiovascular disease Morbid obesity Obstructive sleep apnea History of prior coronary stent placement Plan: Continue home medications Beta sindhu Antilipid agent Continue aspirin and Plavix Heparin Cardiac cath and angiogram tomorrow Cardiovascular services following Time with Patient: Greater than 30
[2018-02-20] MEDS: ASPIRIN 325 MG TAB PO SCH (06:51)
[2018-02-20] MEDS: ATORVASTATIN 80 MG TAB PO SCH (06:52)
[2018-02-20] MEDS: HYDROCHLOROTHIAZIDE 12.5 MG CAP PO SCH (06:52)
[2018-02-20] MEDS: CLOPIDOGREL 75 MG TAB PO SCH (06:52)
[2018-02-20] MEDS: ALLOPURINOL 300 MG TAB PO SCH (06:52)
[2018-02-20] MEDS: VALSARTAN 160 MG TAB PO SCH (06:52)
[2018-02-20] MEDS: FERROUS SULFATE 325 MG TAB PO SCH (06:52)
[2018-02-20] MEDS: ATENOLOL 50 MG TAB PO SCH (06:52)
[2018-02-20] MEDS: CHOLECALCIFEROL 1,000 UNIT TAB PO SCH (06:54)
[2018-02-20] MEDS ORDERED: LIDOCAINE 1% INJ 10MG/ML (20 ML MDV) ONE (09:26)
[2018-02-20] MEDS ORDERED: HEPARIN SODIUM 1,000 UN/ML (10ML VL) ONE (09:26)
[2018-02-20] MEDS ORDERED: VERAPAMIL 2.5 MG/ML 2 ML AMP ONE (09:26)
[2018-02-20] MEDS ORDERED: IV FLUID CONTINUATION 1,000 ML IV ONE (09:55)
[2018-02-20] MEDS ORDERED: MIDAZOLAM 2 MG/2 ML VIAL IV ONE (10:16)
[2018-02-20] MEDS ORDERED: LIDOCAINE 1% INJ 10MG/ML (20 ML MDV) SQ ONE (10:17)
[2018-02-20] MEDS ORDERED: fentaNYL (PF) 50 MCG/ML 2 ML AMP ONE (10:23)
[2018-02-20] MEDS ORDERED: fentaNYL (PF) 50 MCG/ML 2 ML AMP IV ONE (10:24)
[2018-02-20] MEDS: VERAPAMIL SYRINGE (5 MG/10 ML) INTRAARTER ONE ×2 (10:25→10:49)
[2018-02-20] MEDS ORDERED: BIVALIRUDIN BOLUS 250 MG/50 ML IV ONE (10:38)
[2018-02-20] MEDS ORDERED: BIVALIRUDIN 250 MG in SODIUM CHLORIDE 0.9% 50 ML IV ONE (10:39)
[2018-02-20] MEDS ORDERED: CLOPIDOGREL 75 MG TAB ONE (10:42)
[2018-02-20] MEDS ORDERED: CLOPIDOGREL 75 MG TAB PO ONE (10:44)
[2018-02-20] MEDS ORDERED: IOPAMIDOL-370 125ML BTL INJ ONE (10:50)
[2018-02-20] MEDS ORDERED: RX INFO: IV CONTRAST WAS GIVEN 1 EACH MISC MISCELLANE PRN (11:00)
[2018-02-20] MEDS ORDERED: NITROGLYCERIN SL TABS 0.4 MG TAB SUBLINGUAL PRN (11:00)
[2018-02-20] MEDS ORDERED: SODIUM CHLORIDE 0.9% 1,000 ML IV SCH (11:00)
[2018-02-20] MEDS ORDERED: MAG HYDROX/AL HYDROX/SIMETH 30 ML CUP PO PRN (11:00)
[2018-02-20] MEDS ORDERED: ATROPINE SULFATE 0.1 MG/ML 10ML SYRINGE IV PRN (11:00)
[2018-02-20] MEDS: NITROGLYCERIN OINT 1 INCH/GM PACKET TOPICAL SCH ×2 (12:10→17:08)
[2018-02-20] MEDS: MULTIVITAMINS, THERA 1 EACH TAB PO SCH (12:10)
--- NOTE | 2018-02-20 12:55 | LTR ---
DATE OF SERVICE: February 20, 2018. Dear Dr. Velasco: Mr. Carlos Weinstein presented to [facility] with chest discomfort and underwent a myocardial perfusion imaging stress test and that revealed an inferior ischemia. Because of that, a heart catheterization was advised. The heart catheterization revealed severe disease involving the right coronary artery which I did perform successful stenting on it with good angiographic results and without any complication. Thank you for allowing us to participate in his care and please do not hesitate to call if you have any questions or concerns. Sincerely, MMODL / IJN: [id number] /
--- NOTE | 2018-02-20 13:55 | CC ---
CARDIAC CATHETERIZATION REPORT DATE OF SERVICE: 02/20/2018. PERFORMING PHYSICIAN: Renny Mansfield MD, director of federal sales. PROCEDURE PERFORMED: 1. Selective right and left coronary angiogram. 2. Left heart catheterization. 3. Successful stenting of the distal right coronary artery using a 3.5 x 18 mm Xience drug-eluting stent, which was postdilated using 4 mm balloon with good angiographic results AND reduction of stenosis from 70% to 0%. INDICATIONS: This is a pleasant 57-year-old gentleman with known history of coronary artery disease and prior stenting of the right coronary artery distally, presented to the hospital complaining of chest discomfort and underwent myocardial perfusion imaging stress test and that revealed an inferior ischemia. Because of that, a heart catheterization was advised. APPROACH: Right radial artery. COMPLICATIONS: None. LEVEL OF SEDATION: Moderate, sedation length of 36 minutes. PROCEDURE DESCRIPTION: After obtaining an informed consent, the patient was brought to cardiac lab clerk. The right radial artery was cannulated using micropuncture technique under ultrasound guidance, the micropuncture wire passed easily. Then I placed a 6-Swiss 11 cm sheath in the right radial artery. At that point, 2 mg of verapamil IA were given and 10,000 units of heparin IV given as well. Subsequently I did selective right and left coronary angiogram using JR4 and JL3.5 catheters. Left heart catheterization was performed using the JR4 catheter which flipped into the LV then I did pullback across aortic valve. I did after that intervene on the right coronary artery. Please see a separate paragraph for that. SELECTIVE CORONARY ANGIOGRAM: 1. RIGHT CORONARY ARTERY: The right coronary artery is a large caliber vessel and it is a dominant vessel. The proximal right appeared to be angiographically normal. The mid right has mild disease only and the right distally by the junction with the midportion has a lesion appeared to be in the range of 70%. The very distal right is stented and the stent extends into the PDA branch of the right coronary artery and the stent seems to be patent. The PLV branch appeared to be normal as well. 2. LEFT MAIN: The left main is angiographically normal. It bifurcates into the circumflex and left anterior descending artery. 3. LEFT CIRCUMFLEX: The left circumflex is a large caliber vessel, it is a nondominant vessel. The proximal circumflex appeared to be angiographically normal and gives rise into first OM branch which appeared to be a large caliber vessel with disease in the proximal portion, appeared to be in the range of 50%. The mid left circumflex appeared to have mild disease only. It gives rise into a large second OM branch which appeared to be angiographically normal and the circumflex continued after that as a small to medium caliber vessel in the AV groove. 4. LAD: The proximal LAD appeared to have mild disease only. It gives rise into a first diagonal branch which appeared to have mild disease only. The mid and distal LAD appear to have mild disease only. The LAD in the midportion gives rise into a second diagonal branch which appeared to be angiographically normal. HEMODYNAMICS: The left ventricular end-diastolic pressure was 12 mmHg without significant gradient across the aortic valve. PERCUTANEOUS CORONARY ANGIOGRAPHY OF RIGHT CORONARY ARTERY: Anticoagulation was initiated using Angiomax. Subsequently I did engage the right using JR4 guide. I did wire the right using a run-through wire. After that, I did direct stenting of the lesion using 3.5 x 18 mm Xience drug-eluting stent where the stent was positioned under fluoroscopy guidance and deployed under 18 atmospheres for 20 seconds. I did after that post dilated the stent using off 4 mm NC balloon which was inflated under 18 atmospheres for 20 seconds. The following angiogram showed good angiographic results with reduction of stenosis from 70% to 0%. No complications were reported. CONCLUSION: 1. Severe disease involving the distal right coronary artery, appeared to be in the range of 70%. The PDA branch of the right coronary artery is stented and the stent is patent. 2. Mild disease involving the left coronary system. 3. Successful stenting of the distal right coronary artery using 3.5 x 18 mm Xience drug-eluting stent, which was postdilated using 4 mm NC balloon with an excellent angiographic result. POST PROCEDURE MANAGEMENT: 1. Dual anti-platelet therapy. 2. Risk factors modification. I will follow up with the patient. MMODL / IJN: [id number] /
[2018-02-20 20:37] VITALS: RESP 16
[2018-02-20] MEDS ORDERED: ZOLPIDEM 5 MG TAB PO PRN (21:00)
--- NOTE | 2018-02-20 21:20 | P.PN ---
Subjective Progress Note Date: 02/20/18 Principal diagnosis: Coronary artery disease, unstable angina, obstructive sleep apnea, 02/20/2018, patient seen eval examined during rounds clinically patient is slightly better in terms of chest pain, patient is status post cardiac cath angiogram please see details of cardiac cath angiogram and stent placement 57-year-old morbidly obese male with history of hypertension hypertensive cardiovascular disease and coronary artery disease history of stent placement about a year ago for last 1 week patient is been having intermittent episode ache chest pain with a pressure-like sensation patient came into emergency department was seen evaluated examined, CPK were elevated, patient underwent a stress test this morning which came back positive, troponins were marginal patient is now being considered for cardiac cath and angiogram already have been evaluated by cardiovascular services care plan discussed with the patient as well as at length Objective - Vital Signs Vital signs: Vital Signs Temp 98.1 F 02/20/18 20:00 Pulse 59 L 02/20/18 20:00 Resp 16 02/20/18 20:00 BP 154/57 02/20/18 20:00 Pulse Ox 96 02/20/18 20:00 Intake & Output 02/20/18 02/20/18 02/21/18 06:59 18:59 06:59 Intake Total 1250 300 Balance 1250 300 Weight 127 kg Intake: IV 1250 100 Sodium Chloride 0.9% 1, 1250 000 ml In Empty Bag 1 bag @ 1 ML/KG/HR 127 mls/hr IV .[id number] ONE Rx#: [id number] Oral 200 Other: Voiding Method Toilet Toilet # Voids 2 - Exam - Constitutional General appearance: cooperative, morbidly obese, no acute distress - EENT Eyes: EOMI, normal appearance ENT: normal oropharynx Ears: bilateral: normal - Neck Neck: normal ROM Carotids: bilateral: upstroke normal, bruit absent Thyroid: bilateral: normal size - Respiratory Respiratory: bilateral: CTA - Cardiovascular Rhythm: regular Heart sounds: normal: S1, S2 - Gastrointestinal General gastrointestinal: distended, normal bowel sounds, soft - Integumentary Integumentary: normal turgor - Neurologic Neurologic: CNII-XII intact - Musculoskeletal Musculoskeletal: gait normal, strength equal bilaterally - Psychiatric Psychiatric: A&O x's 3, appropriate affect, intact judgment & insight - Labs CBC & Chem 7: 02/18/18 21:54 02/18/18 21:54 Assessment and Plan Assessment: Coronary artery disease New stent in RCA for a ischemia of the inferior wall Unstable angina Hypertension hypertensive cardiovascular disease Morbid obesity Obstructive sleep apnea History of prior coronary stent placement Plan: Status post a new stent and RCA Continue home medications Beta sindhu Antilipid agent Continue aspirin and Plavix Heparin Cardiac cath and angiogram tomorrow Cardiovascular services following Time with Patient: Greater than 30
[2018-02-21] MEDS: SODIUM CHLORIDE 0.9% 1,000 ML IV SCH (00:27)
[2018-02-21] MEDS: NITROGLYCERIN OINT 1 INCH/GM PACKET TOPICAL SCH ×3 (00:27→12:03)
[2018-02-21] MEDS: ATORVASTATIN 80 MG TAB PO SCH (09:52)
[2018-02-21] MEDS: ASPIRIN 325 MG TAB PO SCH (09:52)
[2018-02-21] MEDS: HYDROCHLOROTHIAZIDE 12.5 MG CAP PO SCH (09:52)
[2018-02-21] MEDS: ALLOPURINOL 300 MG TAB PO SCH (09:52)
[2018-02-21] MEDS: CHOLECALCIFEROL 1,000 UNIT TAB PO SCH (09:52)
[2018-02-21] MEDS: ATENOLOL 50 MG TAB PO SCH (09:52)
[2018-02-21] MEDS: FERROUS SULFATE 325 MG TAB PO SCH (09:52)
[2018-02-21] MEDS: CLOPIDOGREL 75 MG TAB PO SCH (09:52)
[2018-02-21] MEDS: VALSARTAN 160 MG TAB PO SCH (09:53)
[2018-02-21] MEDS: MULTIVITAMINS, THERA 1 EACH TAB PO SCH (09:53)
[2018-02-21 12:03] VITALS: TEMP 98.5
[2018-02-21 16:31] VITALS: BP 130/83; PULSE 54
--- NOTE | 2018-02-21 17:06 | P.PN ---
Subjective Patient is doing well. His right forearm is a bit sore but his pulses are well palpable circulation is normal no pain in the hand No chest pain no dizziness lightheadedness He underwent coronary angiography aspirin coronary stenting He is afebrile Heart rates in the 50s Blood pressure 130/83 Heart sounds S1 and S2 are normal no murmurs or gallops. Abdomen soft nontender Breath sounds are clear no rhonchi no crackles Impression Coronary artery disease status post stenting yesterday via the radial route. Access site is healing well pulses are palpable circulation is normal Discharge home on aspirin Plavix statins and beta blockers Follow-up with Dr. Luis in a week Objective - Vital Signs Vital signs: Vital Signs Temp 98.5 F 02/21/18 12:00 Pulse 54 L 02/21/18 16:00 Resp 16 02/21/18 16:00 BP 130/83 02/21/18 16:00 Pulse Ox 97 02/21/18 16:00 Intake & Output 02/20/18 02/21/18 02/21/18 18:59 06:59 18:59 Intake Total 300 660 Balance 300 660 Weight 127 kg 128 kg Intake: IV 100 40 Invasive Line 1 40 Oral 200 620 Other: Voiding Method Toilet Toilet # Voids 1 2 - Labs CBC & Chem 7: 02/18/18 21:54 02/21/18 05:25
--- NOTE | 2018-02-21 22:21 | DS ---
DISCHARGE SUMMARY HISTORY: Carlos Weinstein is a 57-year-old male who presented to the ED with chest discomfort off and on for 1 week. He was seen in the ED, found to have a CPK that was elevated. A stress test was done which was positive. He subsequently underwent cardiac catheterization. PAST MEDICAL HISTORY: Positive for hyperlipidemia, hypertension. FAMILY HISTORY: Positive for CHF, dementia, diabetes mellitus, and MN in his father. PHYSICAL EXAMINATION: Blood pressure is 110/73, respiratory rate of 18, pulse rate is 74. He is afebrile. HEENT was unremarkable. Chest was clear. Cardiovascular system reveals S1, S2. Abdomen is soft. There is no edema. HOSPITAL COURSE: The patient was admitted to the hospital with chest pain. There was an elevated CPK and troponin. Subsequently, he underwent a stress test that was positive. He underwent cardiac catheterization, which showed distal right coronary artery with a blockage which was successfully stented and was the culprit artery consistent with his inferior ischemia. This was done by right radial artery approach today. Patient is otherwise doing well. He does not have any chest pain. PHYSICAL EXAMINATION: Blood pressure is 130/83, respiratory rate of 18, pulse rate of 54. She is afebrile. Blood pressure is 109/71. HEENT is unremarkable. Chest is clear. Cardiovascular system reveals S1, S2. Abdomen is soft. There is no pedal edema. IMPRESSION: 1. Coronary artery disease, status post stent placement. 2. Hypertension. 3. Obesity. 4. Hypercholesterolemia. CONDITION: Stable. DIET: Cardiac. ACTIVITY: As tolerated. DISCHARGE MEDICATIONS: 1. Valsartan with hydrochlorothiazide 160/12.5 one tab p.o. daily. 2. Multivitamins 1 tab p.o. daily. 3. Feosol 325 mg p.o. b.i.d. 4. Plavix 75 mg p.o. daily. 5. Aspirin 81 mg p.o. daily. 6. Zyloprim 10 mg p.o. daily. 7. Lipitor 80 mg p.o. at bedtime. 8. Cholecalciferol 5000 units p.o. daily. 9. Nitroglycerin 0.4 mg sublingual p.r.n. FOLLOWUP: The patient is to followup with Dr. Atiya Mansfield in [address] Danielle Velasco in 1 week's time. MMODL / IJN: [id number] /
[2018-02-22] MEDS ORDERED: ASPIRIN 81 MG PO SCH (09:00)
[2018-02-22] MEDS ORDERED: TART CHERRY EXTRACT PO SCH (09:00)
== END 2018-02-21 17:52 | disposition home or self-care (01) ==
LOC: EC 21:19 → 1SOBS 02-19 00:07 → 3SCARD 02-20 10:58
PROVIDERS: ADMIT Internal Medicine; ATTEND Internal Medicine
DX: I25.110 Atherosclerotic heart disease of native coronary artery with unstable angina pectoris (principal); E78.5 Hyperlipidemia, unspecified; E78.00 Pure hypercholesterolemia, unspecified; I11.9 Hypertensive heart disease without heart failure; M10.9 Gout, unspecified; E66.01 Morbid (severe) obesity due to excess calories; G47.33 Obstructive sleep apnea (adult) (pediatric); Z68.41 Body mass index [BMI] 40.0-44.9, adult; Z87.891 Personal history of nicotine dependence; Z79.02 Long term (current) use of antithrombotics/antiplatelets; Z79.82 Long term (current) use of aspirin; Z79.899 Other long term (current) drug therapy; I25.2 Old myocardial infarction; Z82.49 Family history of ischemic heart disease and other diseases of the circulatory system; Z83.3 Family history of diabetes mellitus
CPT/HCPCS: 96376; 96365; 96366; 99291; 36415; 93005; 93017; 93306; 93458; 83880; 80061; 80053; 82565; 82550 ×2; 82553 ×2; 83735; 84484 ×2; 85025; 85610; 85730 ×2; 71046; 78452; G0378 ×4; C9600; C1887; C1725; C1769 ×2; C1874; C1894; A9500; J2250; J1644 ×3; J2001; J3010; J0583; J2785; Q9950; Q9967; 99285

== ENCOUNTER → 2023-01-01 | Outpatient (CLI) | payer OTHER ==
--- NOTE | 2023-01-01 14:40 | US ---
EXAMINATION TYPE: US thyroid st tissue head/neck DATE OF EXAM: 01/01/2023 COMPARISON: NONE CLINICAL INDICATION: Male, 62 years old with history of R590 LOCALIZED ENLARGED LYMPH NODES; left nec k swelling x 1 year TECHNIQUE: Multiple grayscale and color Doppler ultrasound images of the bilateral neck in the region of swelling was obtained. FINDINGS/IMPRESSION: Multiple small normal appearing lymph nodes seen bilaterally with central fatty hilum. Most prominent measured on each side: Right: 1.8x0.5x0.6cm Left: 1.8x1.2x0.7cm No ultrasound evidence for significant abnormality. Consider further evaluation with CT neck with IV contrast if there is continued clinical concern.
== END | disposition home or self-care (01) ==
LOC: RADUSWWP 14:11
PROVIDERS: ATTEND Family Medicine
DX: R59.0 Localized enlarged lymph nodes (principal)
CPT/HCPCS: 76536

== ENCOUNTER 2023-09-02 09:51 | Day surgery (SDC) | payer MEDICARE, OTHER ==
[2023-09-02 10:33] VITALS: RESP 16; TEMP 97.5
[2023-09-02] MEDS: IV FLUID CONTINUATION 1,000 ML IV ONE (10:40)
[2023-09-02] MEDS: LACTATED RINGERS 1,000 ML IV SCH (10:40)
[2023-09-02] MEDS ORDERED: PROPOFOL 10 MG/ML 20 ML VIAL IV ONE (10:47)
--- NOTE | 2023-09-02 11:03 | P.PCN ---
Date of Procedure: 09/02/23 Procedure(s) Performed: BRIEF HISTORY: Patient is a 63-year-old pleasant white male scheduled for an elective colonoscopy as a part of screening for colon cancer. PROCEDURE PERFORMED: Colonoscopy. PREOPERATIVE DIAGNOSIS: Screening for colon cancer. IV sedation per Anesthesia. PROCEDURE: After informed consent was obtained, the patient, was brought into the endoscopy unit. IV sedation was administered by Anesthesia under continuous monitoring. Digital rectal examination was normal. Initially the Olympus CF-160 flexible video colonoscope was then inserted in the rectum, gradually advanced into the cecum without any difficulty. Careful examination was performed as the scope was gradually being withdrawn. Ileocecal valve and the appendiceal orifice were visualized and appeared normal. Prep was fair.. Mucosa of the cecum, ascending colon, transverse colon, descending colon, sigmoid colon, and rectum appeared normal. Sigmoid diverticulosis. Retroflexion was performed in the rectum and no lesions were seen. The patient tolerated the procedure well. IMPRESSION: Normal-appearing colon from rectum to cecum no evidence of colorectal neoplasia Scattered sigmoid diverticulosis.. RECOMMENDATIONS: Findings of this examination were discussed with the patient as well as his family. He was advised to have repeat screening colonoscopy in 10 years..
[2023-09-02 11:25] VITALS: BP 123/77; PULSE 49
== END 2023-09-02 12:00 | disposition home or self-care (01) ==
LOC: ORWHC2ENDO 09:51
PROVIDERS: ATTEND Internal Medicine Gastroenterology
DX: Z12.11 Encounter for screening for malignant neoplasm of colon (principal); K57.30 Diverticulosis of large intestine without perforation or abscess without bleeding; I10 Essential (primary) hypertension; E78.5 Hyperlipidemia, unspecified; I25.10 Atherosclerotic heart disease of native coronary artery without angina pectoris; G47.33 Obstructive sleep apnea (adult) (pediatric); Z79.899 Other long term (current) drug therapy
CPT/HCPCS: J2704; G0121

== ENCOUNTER → 2024-09-19 | Outpatient (CLI) | payer MEDICARE, OTHER ==
[2024-09-19 17:50] LABS: African American GFR (CKD) >90 (>60 ml/min/1.73 sqM); Blood Urea Nitrogen 19 mg/dL (9-20); Non-African American GFR(CKD) >90 (>60 ml/min/1.73 sqM)
--- NOTE | 2024-09-19 19:15 | CT ---
EXAMINATION TYPE: CT angio neck DATE OF EXAM: 09/19/2024 6:40 PM COMPARISON: None CLINICAL INDICATION: Male, 64 years old with history of I65.1 STENOSIS; Stenosis, pt poor historian TECHNIQUE: Axially acquired helical CT Angiogram of the Neck was obtained with and without contrast. Axial images are supplemented with coronal and sagittal MIP reconstructions. 3D reconstructions were also performed and were post-processed at an independent workstation. Estimated carotid stenosis was calculated using the NASCET criteria. Contrast used:65ml mL of Isovue 370 with IV Contrast, Oral contrast used: , None. CT DLP: 466.1 mGycm, Automated exposure control for dose reduction was used. FINDINGS: CTA NECK: Right Carotid System: The common carotid and external carotid arteries are patent. There is approximately 68 % stenosis at the carotid bifurcation secondary to calcified and noncalcified plaque. The rest of the internal hercules tid artery is patent. Left Carotid System: The common carotid and external carotid arteries are patent. There is approximately 25% stenosis at t he carotid bifurcation secondary to calcified/noncalcified plaque. The rest of the internal carotid a rtery is patent. Vertebral arteries are patent without evidence hemodynamically significant stenosis. Dominant left ve rtebral artery. The right vertebral artery intracranial portion is smaller caliber compared to the le ft. Calcified plaque at the in around the origins of the vertebral arteries bilaterally. There is a three-vessel aortic arch. The origins of the great vessels are patent. No evidence of hemo dynamically significant stenosis. Upper thorax: No acute process. Apices are within normal limits. IMPRESSION: 60% stenosis of the proximal right internal carotid artery secondary to calcified and noncalcified pl aque. No evidence of dissection of the cervical internal carotid arteries or vertebral arteries. [facility], , 09/19/2024 7:13 PM
== END | disposition home or self-care (01) ==
LOC: RADCTMAIN 17:08
PROVIDERS: ATTEND Internal Medicine Interventional Cardiology
DX: I65.1 Occlusion and stenosis of basilar artery (principal); I65.21 Occlusion and stenosis of right carotid artery
CPT/HCPCS: 82565; 84520; 70498; 36415; Q9967